=== PATIENT | male | born 1960 | race African-American/Black ===

== ENCOUNTER 2016-06-04 09:24 | Emergency (ER) | payer OTHER ==
[~2016-06-04] VITALS: Ht 182.9 cm; Wt 97.5 kg
--- NOTE | 2016-06-04 10:00 | NUR ---
XRAY DONE AT [facility].
[2016-06-04 10:09] VITALS: BP 110/76
== END 2016-06-04 10:44 | disposition home or self-care (01) ==
LOC: ER 09:28
DX: S50.02XA Contusion of left elbow, initial encounter (principal); I10 Essential (primary) hypertension; Z88.0 Allergy status to penicillin; Y08.89XA Assault by other specified means, initial encounter; Y93.89 Activity, other specified; Y92.89 Other specified places as the place of occurrence of the external cause; Y99.8 Other external cause status
CPT/HCPCS: 73080-TC; A4606; Z7610